=== PATIENT | male | born 1945 | race Caucasian/White ===

== ENCOUNTER 2017-04-14 16:20 | Emergency (ER) | payer MEDICARE, OTHER ==
[~2017-04-14] VITALS: Ht 180.3 cm; Wt 136.4 kg
[~2017-04-14 16:20] MED LIST: ASPI-973 PO; BUPR75TA5 PO; CALC-140 PO; CETI10CA PO; CHOL200025 PO; CITA40TA13 PO; LEVO150T5 PO; LISI10TA PO; LOVA40TA PO; PRAM0.122 PO
[2017-04-14 16:49] VITALS: BP 130/54; PULSE 62; O2SAT 97
--- NOTE | 2017-04-14 17:38 | ED.REPORT ---
HPI-Abd Pain M 40 and Over Date of Service Apr 14, 2017 ED Provider: Des Fisher MD Pt is a 72 year old male with a history of a suprapubic catheter, S/P prostatectomy who presents to the ED complaining of pain in the lower pelvis that has progressively gotten worse over the past 3 weeks and is intolerable today. Pt reports the pain radiates throughout the penis, bladder, and rectal areas. He describes the pain as "angry nerve pain". Pt believes his pain may be due to injuring himself while trying to flush his catheter when it was plugged. He was seen after this event by [facility] and was prescribed Cipro. He denies nausea, vomiting, diarrhea, fever, chills, or any other symptoms. Dr. Leon Barbour at is the pt's urology surgeon. His catheter was placed October 2016. He is due for a replacement in 2 days. He had a recent colonoscopy with no significant findings. Nursing Notes Stated Complaint: PAIN IN LOWER PELVIC BLADDER Chief Complaint: Male Abdominal Pain Nursing Notes Reviewed: Yes Allergies: Coded Allergies: adhesive (Verified Allergy, Unknown, 05/22/15) meperidine (Unverified Allergy, Unknown, UNKNOWN, 09/23/14) Scheduled Aspirin (Aspirin) 81 Mg Tablet 81 MG PO DAILY Bupropion (Wellbutrin) 75 Mg Tablet 150 MG PO DAILY Calcium Carbonate/Vitamin D3 (Calcium + Vitamin D Tablet) 1 Each Tablet 1 EACH PO DAILY Cetirizine HCl (Zyrtec) 10 Mg Capsule 10 MG PO HS Cholecalciferol (Vitamin D3) (Vitamin D3) 2,000 Unit Tablet 2,000 UNIT PO DAILY Citalopram (Citalopram) 40 Mg Tablet 40 MG PO DAILY Levothyroxine (Levothyroxine) 150 Mcg Tablet 150 MCG PO DAILY Lisinopril (Lisinopril) 10 Mg Tablet 10 MG PO DAILY Lovastatin (Lovastatin) 40 Mg Tablet 40 MG PO HS Pramipexole Dihydrochloride (Mirapex) 0.125 Mg Tablet 0.125 MG PO PM General Time Seen by MD: 17:37 Chief Complaint Abdominal pain (pain in lower pelvis ) Hx Obtained From: Patient Arrived By: Walk-in Sudden in Onset?: No Onset Occurred: More than a week ago... (3 weeks) Symptom Duration: Since onset Progression since Onset: Gradually worsening Location: : Suprapubic Quality: Painful Recent Healthcare: No recent hospitalization, Recent doctor visit Similar Sx Previous: Yes Risk Factors )( AAA Risk Stratification Hypertension Smoking Risk factors reviewed Past Medical History Past Medical History Incontinence (due to prostatectomy) UTI's Prostate cancer thyriod disase Depression Reports: Diabetes mellitus, Hyperlipidemia, Hypertension Past Surgical History Suprapubic cath placed AMS prosthesis Prostatectomy Right knee scope Lap band Smoking History Light Tobacco Smoker Social History Other Social History: Good social support, Ambulatory Status Independent Review of Systems Review of Systems Note: Lower pelvic pain Constitutional: Denies: Chills, Fever GI: Reports: Rectal pain, Denies: Diarrhea, Nausea, Vomiting Complete sys rev & neg: except as marked. Physical Exam Initial Vital Signs Vital Signs (First) Date Time Temp Pulse Resp B/P Pulse Ox O2 Delivery O2 Flow Rate FiO2 04/14/17 16:49 37.1 62 130/54 97 Room Air Initial VS: Reviewed General/Constitutional: Awake, Alert, No acute distress Obese Respiratory / Chest: Atraumatic, Breath sounds NL, Breath sounds = bilat, No respiratory distress Cardiovascular: Heart rate NL, Regular rhythm, Heart sounds NL Abdomen: Atraumatic, Soft, Non-tender Back: Atraumatic, Inspection NL, Full range of motion Head / Eyes: Atraumatic, Normocephalic, PERRL, EOMI ENT: Atraumatic, Airway patent, Mucous membranes moist Skin: Dry, Intact Male Genitourinary: No meatal blood Suprapubic catheter in place with surrounding mild erythema. no fluctuance, warmth, or signs of infection. Involuted glans penis , Cannot identify urethra scrotum normal Neurologic: Oriented X3, Speech NL, No motor deficits, No sensory deficits Neck: Atraumatic, Supple, Full range of motion Upper Extremity / MS: Atraumatic, Inspection NL, Full range of motion Lower Extremity / Pelvis / MS: Atraumatic, Inspection NL, Full range of motion Significant peripheral edema Interpretation & Diagnostics Lab Results Interpretation Result Diagram: 04/14/17213104/14/172131 Test 04/14/17 18:28 04/14/17 21:32 Urine Color Yellow (YELLOW) Urine Appearance Clear (CLEAR,HAZY) Urine pH 7.0 (5.0-8.0) Urine Specific [place] 1.010 (1.003-1.035) Urine Protein 30mg/dL (NEG,TRACE) Urine Glucose (UA) Negativemg/dL (NEGATIVE) Urine Ketones Negativemg/dL (NEGATIVE) Urine Occult Blood Trace (NEGATIVE) Urine Nitrite Positive (NEGATIVE) Urine Bilirubin Negative (NEGATIVE) Urine Urobilinogen Normalmg/dL (NORMAL) Urine Leukocyte Esterase Moderate (NEGATIVE) Urine RBC 0-2/hpf (0-2) Urine WBC 11-50/hpf (0-5) Urine Epithelial Cells Few/hpf (NONE-MOD) Urine Crystals None seen (NONE SEEN) Urine Bacteria Moderate/hpf (NONE-FEW) Urine Hyaline Casts None/lpf (NONE) Urine Granular Casts None seen (NONE SEEN) Urine Waxy Casts None seen (NONE SEEN) Urine Red Blood Cell Casts None seen (NONE SEEN) Urine White Blood Cell Casts None seen (NONE SEEN) Urine Mucus None seen (None Seen) Urine Trichomonas None seen (NONE SEEN) Urine Yeast None (NONE SEEN) Urinalysis Comment None Urine Culture Reflexed Indicated White Blood Count 4.7th/mm3 (3.8-10.1) Red Blood Count 3.94mil/mm3 (4.40-5.80) Hemoglobin 12.1g/dL (13.8-17.2) Hematocrit 36.7% (41.0-50.0) Mean Corpuscular Volume 93.1fL (81-100) Mean Corpuscular Hemoglobin 30.7pg (27.0-35.0) Mean Corpuscular Hemoglobin Concent 33.0% (32.0-37.0) Red Cell Distribution Width 15.7% (12.3-15.4) Platelet Count 226bil/L (150-400) Neutrophils (%) (Auto) 46.8% (40-74) Lymphocytes (%) (Auto) 34.9% (14-46) Monocytes (%) (Auto) 9.5% (4-12) Eosinophils (%) (Auto) 7.8% (0-5) Basophils (%) (Auto) 0.4% (0-3) Sodium Level 137mEq/L (134-144) Potassium Level 4.1mEq/L (3.5-5.2) Chloride Level 101mEq/L (97-108) Carbon Dioxide Level 21mmol/L (18-29) Blood Urea Nitrogen 19mg/dL (8-27) Creatinine 1.13mg/dL (0.76-1.27) Estimat Glomerular Filtration Rate 68mL/min (>59) Glucose Level 111mg/dL (60-99) Calcium Level 9.2mg/dL (8.5-10.1) Total Bilirubin 0.2mg/dL (0.0-1.2) Aspartate Amino Transf (AST/SGOT) 13U/L (0-50) Alanine Aminotransferase (ALT/SGPT) 11U/L (0-44) Alkaline Phosphatase 54U/L (25-160) Total Protein 6.6g/dL (6.4-8.4) Albumin 3.9g/dL (3.4-5.0) Hold Guzman Top Tube Received (Received) CT Abd / Pelvis Interpretation Impression: Cholelithiasis Diffuse rectal wall thickening, this may represent infection. In the proper clinical setting, radiation changes are also possible. Radiologist: Sunny Foreman M.D. Study type: Abdominal CT no contrast Interpretation / Wet Read by: Interpret - Radiologist Re-Eval/Medical Decision Source of Hx: Old records Time of Eval: 21:20 Re-Evaluation/Progress Note: Rechecked pt. Discussed plan for a CT. Patient understand and agrees with plan. All questions addressed. Consultation : Referral / Consult Name: Gogo Clancy MD Consulted With: Urology Call Returned at: 19:40 Note: Discussed pt's case with Dr. Clancy, Urologist. He recommended CT imaging and close office outpatient follow-up. Counseled Regarding: Diagnosis, Lab results, Need for follow-up, When/why to return to ED Discharge & Departure Primary Impression: Pelvic pain Disposition: Home Vital Signs - All Vital Signs Date Time Temp Pulse Resp B/P Pulse Ox O2 Delivery O2 Flow Rate FiO2 04/14/17 23:36 36.9 58 111/50 96 Room Air 04/14/17 20:29 36.9 56 106/50 97 Room Air 04/14/17 18:13 36.9 58 108/35 97 Room Air 04/14/17 16:49 37.1 62 130/54 97 Room Air )( All Prior VS Reviewed: Yes Condition: Stable Patient Instructions: Acute Abdominal Pain (ED) Additional Instructions: No new dangerous cause for the pain that you are experiencing was discovered today. I recommend follow-up with Dr. Clancy on Friday as planned. Use oxycodone one or 2 tablets every 4 hours as needed for severe pain and lorazepam 1 mg tablets up to 3 times a day as needed for bladder spasms. Referrals: Gogo Clancy MD Scribe Attestation Portions of this note were transcribed by Isi Carvalho and Brandt Macedo. I, Dr. Fisher personally performed the history, physical exam and medical decision-making; I reviewed and confirmed the accuracy of the information in the transcribed note. copies to: [facility] Des Fisher MD Apr 14, 2017 17:38 Isi Carvalho Apr 14, 2017 17:46 BRANDT MACEDO Apr 14, 2017 19:35
[2017-04-14 18:13] VITALS: BP 108/35; PULSE 58; O2SAT 97
[2017-04-14 19:02] LABS: APPEARANCE,URINE CLEAR (CLEAR,HAZY); COLOR,URINE YELLOW (YELLOW); OCCULT BLOOD,URINE TRACE (NEGATIVE); UROBILINOGEN,URINE NORMAL (NORMAL)
[2017-04-14 20:29] VITALS: BP 106/50; PULSE 56; O2SAT 97
[2017-04-14] MEDS ORDERED: LORazepam 1 mg Tablet PO ONE (21:20)
[2017-04-14 21:43] LABS: BASOPHILS % (AUTO) 0.4 % (0-3); EOSINOPHILS % (AUTO) 7.8 % (0-5); MONOCYTES % (AUTO) 9.5 % (4-12); Mean Corpuscular Hemoglobin 30.7 pg (27.0-35.0); Mean Corpuscular Volume 93.1 fL (81-100); NEUTROPHILS % (AUTO) 46.8 % (40-74); Platelet Count 226 bil/L (150-400)
[2017-04-14 23:36] VITALS: BP 111/50; PULSE 58; O2SAT 96
[2017-04-15] MEDS ORDERED: _oxyCODONE/APAP 5-325 mg Tablet PO PRN (00:10)
[2017-04-15] MEDS ORDERED: OXYC1TAB24 PO (00:22)
[2017-04-15] MEDS ORDERED: LORA1TAB PO (00:22)
[2017-04-15 00:34] VITALS: BP 111/50; PULSE 58; O2SAT 96
--- NOTE | 2017-04-15 08:42 | DRSVH ---
PROCEDURE: CT ABDOMEN AND PELVIS WITH CONTRAST ([id number]) INDICATIONS: pelvic pain TECHNIQUE: After the administration of intravenous contrast, 5 mm thick sections acquired from the diaphragm to the symphysis. 5 mm coronal and sagittal reformats were acquired. For radiation dose reduction, the following was used: automated exposure control, adjustment of mA and/or kV according to patient siz mari. COMPARISON: 04/18/[address] FINDINGS: Image quality: Excellent. ABDOMEN: Lung bases: Lung bases are clear. Heart size is normal. Solid organs: Cholelithiasis with no CT evidence of acute cholecystitis. Gastric banding procedure wi th gastric banding grossly in normal position. 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 Ind istinct enhancement of the left kidney with no hydronephrosis or ureterectasis. The right kidney enha nces normally. Anterior abdominal wall postoperative change. Wide neck hernia or diastases in the ant erior abdominal wall containing nonobstructed loops of bowel. Bilateral fat containing inguinal herni as. Pelvic postoperative changes. Suprapubic catheter enters via the left lower quadrant with tip in a decompressed bladder.. Peritoneum and bowel: Bowel loops demonstrate normal wall thickness and caliber. No free fluid or a ir. Nodes and vessels: No retroperitoneal or mesenteric adenopathy by size criteria. Aorta and inferior vena cava are normal in size. Miscellaneous: No ventral hernias. PELVIS: Genitourinary: Bladder wall thickness is normal. Miscellaneous: No inguinal hernias or adenopathy. Bones: There are new areas of sclerosis in the right ilium measuring up to 1.3 CM and in the left tavo um measuring up to 1.2 CM. Left sacroiliac joint degenerative change. Stable proximal left femoral [place]. Height loss of the L1 vertebral body. 1 cm round area of sclerosis in the T9 vertebral bod y. IMPRESSION: 1. New areas of sclerosis in the right greater than left ilium as well as the T9 vertebral body. Give n the history of prostate cancer findings are concerning for metastasis. Recommend a bone scan for fu rther evaluation. Findings would be amenable to CT-guided biopsy if needed. 2. Indistinct enhancement in the left kidney may represent pyelonephritis. No drainable fluid collect ions. 3. Left lower quadrant suprapubic catheter with tip in a decompressed bladder. 4. Grossly normal positioning of a gastric lap band. 5. Findings are present discrepancy with the preliminary report. Findings discussed via telephone ([phone]) with Dr. Acevedo at 8:40 AM on April 15, 2017. Dictated by: Joe Wahl M.D. on 04/15/2017 at 8:28 Approved by: Joe Wahl M.D. on 04/15/2017 at 8:41
[2017-04-15] MEDS ORDERED: CIPR-231 PO (10:30)
--- NOTE | 2017-04-15 10:33 | PCM.EDPN ---
ED Note Date of Service Apr 15, 2017 ED Attending Statement This is a follow-up from last night's ER visit where patient was seen by Dr. Fisher. I received a call from the radiologist this morning who noted that the left kidney shows some enhancement which is likely early pyelonephritis. There is also some new sclerosis in the right ischium and T9 which are concerning for new prostate metastases. It appears he was not prescribed antibiotics last night. His urine was suggestive of UTI and is preliminary positive. Given the CT findings and this urine will start on ciprofloxacin. 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 His antibiotics are called in ciprofloxacin to his pharmacy for 14 days. Jaime Dyer MD Apr 15, 2017 10:33
== END 2017-04-15 00:37 | disposition home or self-care (01) ==
LOC: SED 16:20
DX: R10.2 Pelvic and perineal pain (principal); I10 Essential (primary) hypertension; E11.9 Type 2 diabetes mellitus without complications; R60.0 Localized edema; E78.5 Hyperlipidemia, unspecified; Z86.39 Personal history of other endocrine, nutritional and metabolic disease; Z87.440 Personal history of urinary (tract) infections; Z85.46 Personal history of malignant neoplasm of prostate; Z90.79 Acquired absence of other genital organ(s); Z87.891 Personal history of nicotine dependence; Z96.0 Presence of urogenital implants; Z79.82 Long term (current) use of aspirin; Z88.8 Allergy status to other drugs, medicaments and biological substances
CPT/HCPCS: 36415; 74177; 80053; 81000; 82948; 85025; 87077; 87086; 87088; 87186; 99284; Q9967